=== PATIENT | male | born 1990 | race Caucasian/White ===

== ENCOUNTER → 2018-11-28 | Outpatient (CLI) | payer OTHER ==
--- NOTE | 2018-11-28 10:39 | Diagnostic Imaging Report ---
INDICATION: Colonic left testicle. The right testicle measures 4.8 x 2.3 x 3.0 cm and the left testicle measures 4.8 x 2.4 x 3.5 cm. Both testes demonstrate fairly homogeneous echotexture. No discrete testicular masses seen. There is blood flow to both testes. No hydrocele is identified. There is a moderate to large left varicocele present, perhaps accounting for the palpable abnormality. In addition, there is a cyst in the left epididymal head measuring 6 mm x 7 mm. Right epididymis is unremarkable. IMPRESSION: 1. No evidence of testicular mass or vascular compromise. 2. Small left epididymal head cyst. 3. Moderate-sized left varicocele. Dictated by: Dictated on workstation # [id number]
== END ==
LOC: RAD 09:20
PROVIDERS: ATTEND Internal Medicine
DX: N50.3 Cyst of epididymis (principal); I86.1 Scrotal varices
CPT/HCPCS: 76870

== ENCOUNTER 2019-11-05 08:18 | Outpatient (RCR) | payer OTHER | END 2020-02-03 | disposition home or self-care (01) | LOC: CARD 08:18 | PROVIDERS: ATTEND Nurse Practitioner | DX: R00.1 Bradycardia, unspecified (principal); R00.2 Palpitations; R00.0 Tachycardia, unspecified | CPT/HCPCS: 93225; 93226 ==